=== PATIENT | female | born 1975 | race Caucasian/White ===

== ENCOUNTER 2019-04-06 15:40 | Observation (INO) | payer BC ==
[2019-04-06 15:54] VITALS: BMI 33.6
--- NOTE | 2019-04-06 16:22 | PDOC ---
*Physical Exam - Vital Signs Last Vital Signs Temp Pulse Resp BP Pulse Ox 98.7 F 84 18 124/77 100 04/06/19 15:50 04/06/19 15:50 04/06/19 15:50 04/06/19 15:50 04/06/19 15:50 ED Treatment Course - LABORATORY CBC & Chemistry Diagram: 04/06/19 17:00 04/06/19 17:00 Medical Decision Making - Medical Decision Making 04/06/19 16:16 43 yo F h/o severe migraine Pt has failed multiple medications She has been headache free for almost 1 year since her neck surgery in january, she has had daily headaches, migraines 3 times per week Pt notes that today she felt well and while at work she developed visual changes , followed by studdering Then pt developed a headache EKG - Twelve-lead EKG was performed and reviewed by me. There is normal sinus rhythm with a normal rate. The axis is normal. The intervals are normal. There are no ST or T wave abnormalities. Impression: Normal twelve-lead EKG Pt seen by Midlevel Provider under my direct supervision Pt interviewed and examined Ancillary studies reviewed - Ct Head: no acute ICH case reviewed with neuro He recommends observation I agree with plan as outlined by Midlevel Provider 04/06/19 18:37 Clinical Impression: complicated migraine, initial presentation *DC/Admit/Observation/Transfer Diagnosis at time of Disposition: Speech abnormality Qualifiers: Speech disturbance type: dysphasia Qualified Code(s): R47.02 - Dysphasia - Discharge Dispostion Condition at time of disposition: Stable - Referrals - Patient Instructions - Post Discharge Activity
--- NOTE | 2019-04-06 16:43 | PDOC ---
History of Present Illness - General Chief Complaint: Lightheaded Stated Complaint: SEVERE HEADACHE Time Seen by Provider: 04/06/19 16:12 - History of Present Illness Initial Comments: 04/06/19 16:33 CHIEF COMPLAINT: headache, speech difficulty HISTORY OF PRESENT ILLNESS: 43 yo F with hx of migraines, "high triglycerides" and recent cervical arthroscopy (01/19/2019) presents to ED with acute onset headache and difficulty speaking. Patient reports that she went outside for approximatley 5 minutes and when she returned indoors she suddenly felt "everything go black, and I couldn't see, and when I could see again, there all these spots going in and out, and I wasn't able to find my words for about five minutes. The PT I work with witnessed me not being able to speak while I was on a phone with patient." She reports headache on the left side of her "behind my eye, and it doesn't feel like my migraines." Patient reports that her mother was recently admitted to a hospital for possible stroke and was "sent for more testing, but then she signed herself out." No recent travel or sick contacts. PAST MEDICAL HISTORY: migraines, "high triglycerides" FAMILY HISTORY: Denies SOCIAL HISTORY: Denies tobacco, alcohol, illicit drug use. SURGICAL HISTORY: cervical arthoscopy 01/19/2019 ALLERGIES: No known drug allergies REVIEW OF SYSTEMS General/Constitutional: Denies fever or chills. Denies weakness, weight change. HEENT: Denies change in vision. Denies ear pain or discharge. Denies sore throat. Cardiovascular: Denies chest pain or shortness of breath. Respiratory: Denies cough, wheezing, or hemoptysis. Gastrointestinal: Denies nausea, vomiting, diarrhea or constipation. Denies rectal bleeding. Genitourinary: Denies dysuria, frequency, or change in urination. Musculoskeletal: Denies joint or muscle swelling or pain. Denies neck or back pain. Skin and breasts: Denies rash or easy bruising. Neurologic: Headache, difficulty speaking since 1 pm. PHYSICAL EXAM General Appearance: Well-appearing, appropriately dressed. No apparent distress , no intoxication. HEENT: EOMI, PERRLA, normal ENT inspection, normal voice, TMs normal, pharynx normal. No conjunctival pallor. No photophobia, scleral icterus. Neck: Supple. Trachea midline. No tenderness, rigidity, carotid bruit, stridor , lymphadenopathy, or thyromegaly. Respiratory/Chest: Lungs CTAB. No shortness of breath, chest tenderness, respiratory distress, accessory muscle use. No crackles, rales, rhonchi, stridor , wheezing, dullness Cardiovascular: RRR. S1, S2. No JVD, murmur, bradycardia, tachycardia. Vascular Pulses: Dorsalis-Pedis (R): 2+, Dorsalis-Pedis (L): 2+ Gastrointestinal/Abdominal: Normal bowel sounds. Abdomen soft, non-distended. No tenderness or rebound tenderness. No organomegaly, pulsatile mass, guarding , hernia, hepatomegaly, splenomegaly. Lymphatic: No adenopathy, tenderness. Musculoskeletal/Extremities: Normal inspection. FROM of all extremities, normal capillary refill. Pelvis Stable. No CVA tenderness. No tenderness to extremities, pedal edema, swelling, erythema or deformity. Integumentary: Appropriate color, dry, warm. No cyanosis, erythema, jaundice or rash Neurologic: plant machinist II-XII intact. Fully oriented, alert. Appropriate mood/affect. Motor strength 5/5. No appreciable EOM palsy, facial droop or sensory deficit. A&Ox3, follow commands, respond appropriately CN2-12: conjugate gaze, pupil round, equal and reactive to light. Visual field full to confrontation. EOMI without nystagmus, pursuit is smooth without saccade. Facial sensation and muscle activation intact bilaterally. Hearing intact bilaterally. Palate elevate symmetrically. Shoulder shrug and neck turn full strength. Tongue protrude midline. Speech difficulty with persistent stuttering. Motor: UE and LE strength 5/5 throughout bilaterally. Muscle tone and bulk normal. Sensory: pin prick & temp : BUE & BLE intact and equal bilaterally Vibration & propioception: intact bilaterally at 1st MCP and MTP joints. no sensory level noted on trunk Cerebellar: Rapid-alternating movement with regular rhythm without bradykinesia. [id number] and [id number] intact bilaterally without dysmetria or overshoot. Gait narrow based. No shuffling. Full hip flexion and knee flexion. Negative Romberg No involuntary movement noted. No pronator drift. No clonus. Past History - Past Medical History Allergies/Adverse Reactions: Allergies Allergy/AdvReac Type Severity Reaction Status Date / Time No Known Drug Allergies Allergy Verified 04/06/19 17:36 Home Medications: Ambulatory Orders Omeprazole 40 mg PO DAILY 04/06/19 Anemia: No Asthma: No Cancer: No Cardiac Disorders: No CVA: No COPD: No CHF: No Dementia: No Diabetes: No GI Disorders: Yes (reflux) Disorders: No HTN: No Hypercholesterolemia: No Liver Disease: No Seizures: No Thyroid Disease: No - Immunization History Immunization Up to Date: No - Suicide/Smoking/Psychosocial Hx Smoking History: Never smoked Have you smoked in the past 12 months: No Information on smoking cessation initiated: No Hx Alcohol Use: No Drug/Substance Use Hx: Yes (LAST ONE 10 DAYS AGO.) Substance Use Type: None *Physical Exam - Vital Signs Last Vital Signs Temp Pulse Resp BP Pulse Ox 98.7 F 84 18 124/77 100 04/06/19 15:50 04/06/19 15:50 04/06/19 15:50 04/06/19 15:50 04/06/19 15:50 ED Treatment Course - LABORATORY CBC & Chemistry Diagram: 04/06/19 17:00 04/06/19 17:00 - RADIOLOGY Radiology Studies Ordered: Category Date Time Status HEAD CT (STROKE) [CT] Stat CT Scan 04/06/19 16:32 Ordered Medical Decision Making - Medical Decision Making 04/06/19 16:43 43 yo F with hx of migraines, "high triglycerides" and recent cervical arthroscopy (01/19/2019) presents to ED with acute onset headache and difficulty speaking. Ddx includes migraines, heat exhaustion, anxiety, stroke/TIA. 04/06/19 17:09 stroke code called given persistent speech abnormality per pt and . Discussed case with on-call neuro MD Perez. Will order MRI and carotid doppler US per Ana. Admit to obs. *DC/Admit/Observation/Transfer Diagnosis at time of Disposition: Speech abnormality Qualifiers: Speech disturbance type: dysphasia Qualified Code(s): R47.02 - Dysphasia - Discharge Dispostion Condition at time of disposition: Stable Decision to Admit order: Yes - Referrals - Patient Instructions - Post Discharge Activity NIH Stroke Scale - Last Known Well Date/Time & Onset Date Last Known Well: 04/06/19 Time Last Known Well: 01:00 (pm) - Initial Evaluation Level of consciousness: Alert Ask patient the month and their age: Answers both correctly Ask patient to open & close eyes; make fist and let go: Obeys both correctly Best gaze (horizontal eye movement): Normal Visual field testing: No visual field loss Facial paresis (Show teeth/raise eyebrows/close eyes tight): Normal symmetrical movement Motor Function: Left Arm: Normal Motor Function: Right Arm: Normal (extends arm 90 (or 45) degrees for 10 seconds without drift Motor Function: Left Leg: Normal (extends leg 30 degrees for 5 seconds without drift) Motor Function: Right Leg: Normal (extends leg 30 degrees for 5 seconds without drift) Limb Ataxia: No ataxia Sensory(Use pinprick test arms,legs,trunk,face/side to side): Normal Best language (Describe picture, name items, read sentences): No Aphasia Dysarthria (read several words): Mild to moderate slurring of words Extinction and Inattention: No abnormality - Total Score NIH Stroke Scale Score: 1
[2019-04-06] MEDS ORDERED: SODIUM CHLORIDE 1,000 ML IV SCH (16:45)
[2019-04-06 17:27] LABS: BASO % 0.8 % (0-2.0); EOS % 1.9 % (0-4.5); HEMATOCRIT 32.5 % (32.4-45.2); HEMOGLOBIN 10.5 GM/dL (10.7-15.3); LYMPH % 21.1 % (8-40); MCH 23.3 pg (25.7-33.7); MCHC 32.4 g/dl (32.0-36.0); MEAN CELL VOLUME 71.9 fl (80-96); MEAN PLT VOLUME 8.7 fl (7.5-11.1); MONO % 5.1 % (3.8-10.2); NEUT % 71.1 % (42.8-82.8); PLATELET COUNT 250 K/MM3 (134-434); RBC 4.52 M/mm3 (3.60-5.2); RDW 16.9 % (11.6-15.6); WHITE BLOOD COUNT 6.3 K/mm3 (4.0-10.0)
[2019-04-06] MEDS ORDERED: KETOROLAC TROMETHAMINE 30 MG/1 ML VIAL IVPUSH ONE (17:28)
[2019-04-06] MEDS ORDERED: METOCLOPRAMIDE HCL INJECTION 10 MG/2 ML VIAL IVPUSH ONE (17:28)
[2019-04-06] MEDS ORDERED: METOCLOPRAMIDE HCL INJECTION 10 MG/2 ML VIAL ONE (17:35)
[2019-04-06] MEDS ORDERED: KETOROLAC TROMETHAMINE 15 MG/ML VIAL ONE (17:36)
[2019-04-06 17:37] LABS: PROTHROMBIN TIME (PATIENT) 11.8 SEC (9.7-13.0)
[2019-04-06 17:47] LABS: ALBUMIN 3.9 g/dl (3.4-5.0); BILIRUBIN,TOTAL 0.2 mg/dL (0.2-1); BLOOD UREA NITROGEN 11.9 mg/dL (7-18); CREATININE 0.8 mg/dL (0.55-1.3); POTASSIUM 3.9 mmol/L (3.5-5.1); TOT PROT 6.7 g/dl (6.4-8.2)
[2019-04-06 17:49] LABS: URINE APPEARANCE CLEAR; URINE BILIRUBIN NEGATIVE (NEGATIVE); URINE COLOR YELLOW; URINE GLUCOSE (UA) NEGATIVE (NEGATIVE); URINE KETONE NEGATIVE (NEGATIVE); URINE LEUK ESTERASE NEGATIVE (NEGATIVE); URINE NITRITE NEGATIVE (NEGATIVE); URINE PROTEIN NEGATIVE (NEGATIVE); URINE UROBILINOGEN 0.2 mg/dL (0.2-1.0)
[2019-04-07 09:07] VITALS: BP 111/65; PULSE 90; TEMP 98.8
--- NOTE | 2019-04-07 10:07 | HP ---
Admitting History and Physical - Admission Chief Complaint: presented w headache bluut vision ? palp w h/o anxiety. w/u all nl reqesting to leave f/u w me. i was just notified of pt admiited under wrong dr she called me!!! History Source: Patient Limitations to Obtaining History: No Limitations - Past Medical History ...LMP: 06/17/12 - Past Surgical History Past Surgical History: Yes: None - Smoking History Smoking history: Never smoked Have you smoked in the past 12 months: No - Alcohol/Substance Use Hx Alcohol Use: No - Social History Usual Living Arrangement: Yes: Alone History of Recent Travel: No Home Medications - Allergies Allergies/Adverse Reactions: Allergies Allergy/AdvReac Type Severity Reaction Status Date / Time No Known Drug Allergies Allergy Verified 04/06/19 17:36 - Home Medications Home Medications: Ambulatory Orders Omeprazole 40 mg PO DAILY 04/06/19 Family Disease History - Family Disease History Family History: Unremarkable Review of Systems - Review of Systems Constitutional: reports: No Symptoms Eyes: reports: No Symptoms HENT: reports: No Symptoms Neck: reports: No Symptoms Cardiovascular: reports: No Symptoms Respiratory: reports: No Symptoms Gastrointestinal: reports: No Symptoms Genitourinary: reports: No Symptoms Breasts: reports: No Symptoms Reported Musculoskeletal: reports: No Symptoms Integumentary: reports: No Symptoms Neurological: reports: Headache Endocrine: reports: No Symptoms Hematology/Lymphatic: reports: No Symptoms Psychiatric: reports: No Symptoms, Anxiety, Depression Physical Examination Vital Signs: Vital Signs Temperature 98.8 F 04/07/19 09:06 Pulse Rate 90 04/07/19 09:06 Respiratory Rate 19 04/07/19 06:12 Blood Pressure 111/65 04/07/19 09:06 O2 Sat by Pulse Oximetry (%) 99 04/07/19 09:06 Labs: CBC, BMP 04/06/19 17:00 04/06/19 17:00 Assessment/Plan d/c today home f/u me 4 days tylenol asa [po 61 mg
--- NOTE | 2019-04-07 10:08 | DS ---
Physical Examination Vital Signs: Vital Signs Temperature 98.8 F 04/07/19 09:06 Pulse Rate 90 04/07/19 09:06 Respiratory Rate 19 04/07/19 06:12 Blood Pressure 111/65 04/07/19 09:06 O2 Sat by Pulse Oximetry (%) 99 04/07/19 09:06 Constitutional: Yes: Well Nourished Eyes: Yes: WNL HENT: Yes: WNL Neck: Yes: WNL Cardiovascular: Yes: WNL Respiratory: Yes: WNL Gastrointestinal: Yes: WNL ...Rectal Exam: Yes: WNL Renal/: Yes: WNL Breast(s): Yes: WNL Musculoskeletal: Yes: WNL Extremities: Yes: WNL Edema: No Peripheral Pulses WNL: Yes Integumentary: Yes: WNL Neurological: Yes: WNL ...Motor Strength: WNL Psychiatric: Yes: WNL Labs: CBC, BMP 04/06/19 17:00 04/06/19 17:00 Discharge Summary Reason For Visit: SPEECH DISTURBANCE Current Active Problems Speech abnormality (Acute) Condition: Stable - Instructions Diet, Activity, Other Instructions: d?c home today f/u w me 3 4 days asa daily Disposition: HOME - Home Medications Comprehensive Discharge Medication List: Ambulatory Orders Omeprazole 40 mg PO DAILY 04/06/19
--- NOTE | 2019-04-07 15:21 | EKG ---
Test Reason : Blood Pressure : / mmHG Vent. Rate : 085 BPM Atrial Rate : 085 BPM P-R Int : 162 ms QRS Dur : 090 ms QT Int : 400 ms P-R-T Axes : 027 001 022 degrees QTc Int : 476 ms NORMAL SINUS RHYTHM NORMAL ECG NO PREVIOUS ECGS AVAILABLE Confirmed by NANCY DUGAN MD ([id number]) on 04/07/2019 3:21:07 PM Referred By: Confirmed By:NANCY DUGAN MD
== END 2019-04-07 10:30 | disposition home or self-care (01) ==
LOC: JER 15:40 → JERBED 18:08
PROVIDERS: ADMIT Family Medicine; ATTEND Family Medicine
PROC: 3E0333Z Introduction of Anti-inflammatory into Peripheral Vein, Percutaneous Approach (ICD-10-PCS; principal; 2019-04-06)
PROC: 3E0337Z Introduction of Electrolytic and Water Balance Substance into Peripheral Vein, Percutaneous Approach (ICD-10-PCS; 2019-04-06)
PROC: 3E033GC Introduction of Other Therapeutic Substance into Peripheral Vein, Percutaneous Approach (ICD-10-PCS; 2019-04-06)
DX: R47.89 Other speech disturbances (principal); R47.02 Dysphasia; K21.9 Gastro-esophageal reflux disease without esophagitis
CPT/HCPCS: 36415; 70450-TC; 70551-TC; 80053; 81003; 82465; 82550; 83718; 83721; 84478; 84484; 85025; 85610; 86850; 86900; 86901; 93005; 93010; 93880-TC; 99284-25; G0378; J7030

== ENCOUNTER 2024-03-01 08:29 | Emergency (ER) | payer OTHER ==
[2024-03-01 08:44] VITALS: BP 156/94; PULSE 69; RESP 20; TEMP 98.1; BMI 34.5
[2024-03-01] MEDS ORDERED: KETOROLAC TROMETHAMINE 30 MG/1 ML VIAL ONE (08:47)
[2024-03-01] MEDS ORDERED: ONDANSETRON 4 MG/2 ML VIAL ONE (08:47)
[2024-03-01] MEDS: SODIUM CHLORIDE 1,000 ML IV ONE (08:58)
[2024-03-01] MEDS: KETOROLAC TROMETHAMINE 30 MG/1 ML VIAL IVPUSH ONE (08:58)
[2024-03-01] MEDS: ONDANSETRON 4 MG/2 ML VIAL IVPUSH ONE (08:59)
[2024-03-01] MEDS ORDERED: HYDROmorphone HCL/PF 1 MG/ML VIAL ONE ×2 (09:23→10:07)
[2024-03-01] MEDS: HYDROmorphone HCl 2 MG/ML VIAL IVPUSH ONE ×2 (09:28→10:11)
[2024-03-01 09:33] LABS: HEMATOCRIT 37.8 % (32.4-45.2); HEMOGLOBIN 11.9 G/dL (10.7-15.3); MCH 22.8 pg (25.7-33.7); MCHC 31.4 g/dl (32.0-36.0); MEAN CELL VOLUME 72.4 fl (80-96); MEAN PLT VOLUME 9.5 fl (7.5-11.1); PLATELET COUNT 275.1 10^3/uL (134-434); RBC 5.22 10^6/uL (3.60-5.2); RDW 18.6 % (11.6-15.6); WHITE BLOOD COUNT 8.8 10^3/uL (4.0-10.8)
[2024-03-01 09:34] LABS: HCG,QUALITATIVE URINE Negative
[2024-03-01 09:43] LABS: ALBUMIN 4.4 g/dl (3.4-5.0); ALK PHOS 82 U/L (45-117); ANION GAP 11 mmol/L (4-13); BILIRUBIN,TOTAL 0.4 mg/dl (0.2-1); CALCIUM 9.6 mg/dl (8.5-10.1); CHLORIDE 104 mmol/L (98-107); CO2 23 mmol/L (21-32); CREATININE 0.8 mg/dl (0.6-1.3); GLUCOSE,RANDOM 103 mg/dl (74-106); POTASSIUM 4.5 mmol/L (3.5-5.1); SGOT/AST 20 U/L (15-37); SGPT/ALT 22 U/L (7-52); SODIUM 138 mmol/L (136-145); TOT PROT 6.7 g/dl (6.4-8.2)
[2024-03-01 09:53] LABS: PLATELET ESTIMATE ADEQUATE
== END 2024-03-01 11:04 | disposition home or self-care (01) ==
LOC: FER 08:29
PROC: 3E033GC Introduction of Other Therapeutic Substance into Peripheral Vein, Percutaneous Approach (ICD-10-PCS; principal; 2024-03-01)
PROC: 3E033GC Introduction of Other Therapeutic Substance into Peripheral Vein, Percutaneous Approach (ICD-10-PCS; 2024-03-01)
PROC: 3E0333Z Introduction of Anti-inflammatory into Peripheral Vein, Percutaneous Approach (ICD-10-PCS; 2024-03-01)
PROC: 3E033GC Introduction of Other Therapeutic Substance into Peripheral Vein, Percutaneous Approach (ICD-10-PCS; 2024-03-01)
PROC: 3E0337Z Introduction of Electrolytic and Water Balance Substance into Peripheral Vein, Percutaneous Approach (ICD-10-PCS; 2024-03-01)
DX: N23 Unspecified renal colic (principal); R39.15 Urgency of urination; R30.0 Dysuria; R11.2 Nausea with vomiting, unspecified
CPT/HCPCS: 36415; 74176-TC; 80053; 81003; 81015; 84703; 85025; 99284-25

== ENCOUNTER → 2024-05-05 | Day surgery (SDC) | payer OTHER | END | disposition home or self-care (01) | LOC: FMAMMOTONE 09:59 | PROVIDERS: ATTEND Family Medicine | PROC: 0HBU3ZX Excision of Left Breast, Percutaneous Approach, Diagnostic (ICD-10-PCS; principal; 2024-05-05) | DX: N60.12 Diffuse cystic mastopathy of left breast (principal); N64.89 Other specified disorders of breast; R92.1 Mammographic calcification found on diagnostic imaging of breast | CPT/HCPCS: 19081; 76098-TC-FY; 88305-TC ==